=== PATIENT | male | born 2005 | race Caucasian/White ===

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

== ENCOUNTER 2025-03-15 12:09 | Emergency (ER) | payer OTHER, SELFPAY ==
--- NOTE | 2025-03-15 12:11 | ED.GENADULT ---
HPI - General Adult General Chief complaint: Wound/Laceration Stated complaint: SUTURE REMOVAL Time Seen by Provider: 03/15/25 12:11 Source: patient Mode of arrival: ambulatory Limitations: no limitations History of Present Illness HPI narrative: 19-year-old male patient who presents to the [facility] with request to have sutures removed from the right thumb. Patient states he had sutures placed about 12 days ago after he sliced his finger with a knife trying to pry apart frozen beef patties. Patient denies any issues with infection and denies any complications at this time. Related Data Home Medications ?Medication ?Instructions ?Recorded ?Confirmed ?Last Taken ?Type No Home Medications 03/15/25 03/15/25 Unknown History Allergies Allergy/AdvReac Type Severity Reaction Status Date / Time No Known Allergies Allergy Verified 03/15/25 12:27 Review of Systems Review of Systems: CONSTITUTIONAL: Denies fever, chills, or sweats. EYES: Denies visual changes, redness, or discharge. ENT: Denies rhinorrhea, congestion, sore throat, or otalgia. CARDIOVASCULAR: Denies chest pain, palpitations, or edema. RESPIRATORY: Denies cough or dyspnea. GASTROINTESTINAL: Denies abdominal pain, nausea, vomiting, or diarrhea. GENITOURINARY: Denies dysuria or hematuria. SKIN: Denies rash or itching. Positive for sutures intact to the palm side of the right thumb. MUSCULOSKELETAL: Denies back pain, joint pain, or myalgia. NEUROLOGIC: Denies headache, numbness, or weakness. PSYCHIATRIC: Denies anxiety or depression. [facility], [facility] Past Medical History Medical History (Updated 03/15/25 @ 12:31 by Isa Jules APRN) No significant past medical history Comments At the time of my signature I agree with nursing past medical history, surgical, social, and family history. There is no relevant family history pertinent to the presenting complaint. Exam Narrative: GENERAL: Well-appearing, well-nourished, and in no acute distress. HEAD: Normocephalic, atraumatic. EYES: PERRLA and EOMI. ENT: Nares clear, no rhinorrhea or epistaxis. Mucous membranes moist. NECK: Supple. No lymphadenopathy CHEST: Clear to auscultation. No respiratory distress. HEART: Regular rate and rhythm. No murmur heard. Normal peripheral pulses. ABDOMEN: Soft, nontender, nondistended, normal active bowel sounds. EXTREMITIES: Normal range of motion. No edema. patient has 4 intact sutures noted to the right thumb on the palm side. No evidence of or signs of infection at this time. SKIN: Warm, dry, no rash. NEURO: No focal deficits. Alert and oriented x3. Course Course Level of Care: Express Care Visit Vital Signs Vital signs: Vital signs reviewed. Procedures Other Procedure Procedure 1: Other Procedure: Patient had 4 sutures removed with suture removal kit. The area was cleansed with alcohol pad. Once sutures removed there was no evidence of soft or signs symptoms of infection at this time. The laceration was very well-approximated and. Healing well. Antibiotic ointment Band-Aid was placed postprocedure MDM MDM Narrative Medical decision making narrative: patient's sutures were removed no complications at this time. Patient was discharged. Differential Diagnosis Differential Diagnosis: Differential diagnosis: Abscess, cellulitis, hidradenitis, laceration, puncture wound. Critical Care Time Critical Care Time Critical Care Time: No Discharge Plan Discharge Clinical Impression: Encounter for removal of sutures Patient Disposition: Home Condition: Stable Instructions: Antibiotic Form, Laceration (ED) Additional Instructions: Continue to wash wound with soap water, pat dry may apply antibiotic ointment on the area for the next 1-2 days and cover with Band-Aid. Watch for continuous signs of infection including increased pain, discharge from the site increased redness or fevers or body aches then you would need to be reassessed for possible antibiotics. Patient Language: Tajik Prescriptions: No Action No Home Medications Follow-up/Referrals: UNKNOWN,DOCTOR [Non-Staff] Time of Disposition: 12:29
[2025-03-15 12:20] VITALS: BP 126/63; PULSE 74; RESP 18; TEMP 37.1; O2SAT 97
== END 2025-03-15 12:30 | disposition home or self-care (01) ==
PROVIDERS: Emergency Provider Nurse Practitioner Family
DX: S61.011D Laceration without foreign body of right thumb without damage to nail, subsequent encounter (principal); W26.0XXD Contact with knife, subsequent encounter
CPT/HCPCS: 99202; G0463